=== PATIENT | male | born 1990 | race Two or more races ===

== ENCOUNTER 2018-09-09 00:44 | Emergency (ER) | payer OTHER ==
[~2018-09-09] VITALS: Ht 170.2 cm; Wt 79.4 kg
== END 2018-09-09 01:49 ==
LOC: ER 00:44
DX: H10.89 Other conjunctivitis (principal)

== ENCOUNTER 2021-12-05 15:00 | Emergency (ER) | payer OTHER ==
[~2021-12-05] VITALS: Ht 170.2 cm; Wt 73.5 kg
== END 2021-12-05 19:08 | disposition home or self-care (01) ==
LOC: ER 15:00
DX: B34.9 Viral infection, unspecified (principal); Z20.822 Contact with and (suspected) exposure to COVID-19